=== PATIENT | female | born 1950 | race Caucasian/White ===

== ENCOUNTER 2017-08-01 20:22 | Emergency (ER) | payer OTHER ==
[~2017-08-01] VITALS: Ht 167.6 cm; Wt 92.7 kg
[~2017-08-01 20:22] MED LIST: CAR60 PO; ECO81 PO; LEVOTHYROXINE0.05 M2; LIPI10 PO; PRILOSEC40 MG; TENORMIN25 MG
[2017-08-01 22:30] LABS: BASOPHIL % 0.5 % (0-2); PLATELET COUNT 184 x10^3mcL (130-400); RED CELL DISTRIBUTION WIDTH 14.4 % (11.5-14.5)
[2017-08-01 22:32] LABS: UA SPECIFIC GRAVITY 1.015 (1.005-1.035); microscopic required? YES; urine erythrocyte 3+ (NEGATIVE)
[2017-08-01 22:39] LABS: CALCIUM 9.4 mg/dL (8.5-10.1); CARBON DIOXIDE 30.7 mmol/L (21-32); CHLORIDE SERUM 101 mmol/L (98-107); CREATININE SERUM 0.9 mg/dL (0.6-1.0); GFR1 > 60 mL/min; GLUCOSE SERUM 108 mg/dL (74-106); POTASSIUM SERUM 4.2 mmol/L (3.5-5.1); SODIUM SERUM 140 mmol/L (136-145)
[2017-08-01 22:43] LABS: ALBUMIN 4.2 g/dL (3.4-5.0); ALKALINE PHOSPHATASE 98 U/L (46-116); ALT/SGPT 23 U/L (14-59); AMYLASE 49 U/L (25-115); AST/SGOT 19 U/L (15-37); BILIRUBIN TOTAL 0.27 mg/dL (0.20-1.00); LIPASE 160 IU/L (73-393); TOTAL PROTEIN, SERUM 8.2 g/dL (6.4-8.2)
[2017-08-02 01:00] VITALS: BP 149/83
== END 2017-08-02 01:00 | disposition home or self-care (01) ==
LOC: ED 20:22
PROVIDERS: Specialist
DX: N39.0 Urinary tract infection, site not specified (principal); K21.9 Gastro-esophageal reflux disease without esophagitis; Z88.0 Allergy status to penicillin; Z88.1 Allergy status to other antibiotic agents
CPT/HCPCS: 83880; J1885; J1956; J2405; J3010; J7030

== ENCOUNTER 2017-09-24 19:31 | Emergency (ER) | payer OTHER ==
[~2017-09-24] VITALS: Ht 167.6 cm; Wt 93.5 kg
[2017-09-25 01:05] VITALS: BP 141/77
== END 2017-09-25 01:05 | disposition home or self-care (01) ==
LOC: ED 19:31
DX: R07.89 Other chest pain (principal); F17.200 Nicotine dependence, unspecified, uncomplicated; M54.9 Dorsalgia, unspecified; I10 Essential (primary) hypertension; E07.9 Disorder of thyroid, unspecified; K21.9 Gastro-esophageal reflux disease without esophagitis; Z88.0 Allergy status to penicillin; Z88.1 Allergy status to other antibiotic agents; Z86.79 Personal history of other diseases of the circulatory system

== ENCOUNTER 2018-03-30 18:46 | Inpatient (IN) | payer OTHER ==
[~2018-03-30] VITALS: Ht 167.6 cm; Wt 89.0 kg
[2018-03-30 21:19] LABS: CALCIUM 7.7 mg/dL (8.5-10.1); CARBON DIOXIDE 24.6 mmol/L (21-32); POTASSIUM SERUM 3.6 mmol/L (3.5-5.1)
[2018-03-30 21:31] LABS: BILIRUBIN TOTAL 0.4 mg/dL (0.20-1.00); TOTAL PROTEIN, SERUM 6.2 g/dL (6.4-8.2)
[2018-03-30 21:39] LABS: RED CELL DISTRIBUTION WIDTH 14.2 % (11.5-14.5)
[2018-03-30 21:44] LABS: BASOPHIL % 0 % (0-2)
[2018-03-30 21:45] LABS: PLATELET COUNT 81 x10^3mcL (130-400)
[2018-03-30 22:23] LABS: microscopic required? YES; urine erythrocyte TRACE (NEGATIVE)
[2018-03-31 03:07] VITALS: BP 101/52
[2018-03-31 03:11] LABS: MAGNESIUM 1.8 mg/dL (1.8-2.4); PHOSPHOROUS 2.6 mg/dL (2.5-4.9)
[2018-03-31 03:17] LABS: T3 TOTAL 0.87 ng/mL
[2018-03-31 03:22] LABS: CHOLESTEROL/HDL RATIO 5.4
[2018-03-31 03:23] LABS: FREE T4 1.03 ng/dL (0.76-1.46); FREE THYROXINE INDEX 2.1 ug/dL (1.4-4.5); T4(THYROXINE) 5.8 ug/dL (4.7-13.3)
[2018-03-31 05:47] VITALS: BP 123/51
[2018-03-31 07:55] VITALS: BP 102/57
[2018-03-31 09:54] LABS: RED CELL DISTRIBUTION WIDTH 14.4 % (11.5-14.5)
[2018-03-31 10:05] LABS: BASOPHIL % 0 % (0-2); PLATELET COUNT 73 x10^3mcL (130-400)
[2018-03-31 13:12] VITALS: BP 117/52
[2018-03-31 17:58] VITALS: BP 115/58
[2018-03-31 21:30] VITALS: BP 119/62
[2018-04-01 05:42] VITALS: BP 117/60
[2018-04-01 05:55] LABS: CARBON DIOXIDE 25.3 mmol/L (21-32); MAGNESIUM 1.9 mg/dL (1.8-2.4); PHOSPHOROUS 1.9 mg/dL (2.5-4.9); POTASSIUM SERUM 4.9 mmol/L (3.5-5.1)
[2018-04-01 06:10] LABS: RED CELL DISTRIBUTION WIDTH 14.5 % (11.5-14.5)
[2018-04-01 06:59] LABS: PLATELET COUNT 37 x10^3mcL (130-400)
[2018-04-01 08:36] VITALS: BP 100/47
[2018-04-01 10:39] LABS: BAND NEUTROPHIL 70 % (0-10); BASOPHIL 0 % (0-2); METAMYELOCTE 4 % (0-2); MONOCYTE 2 % (0-7); SEGMENTED NEUTROPHILS 19 % (37-75)
[2018-04-01 10:41] LABS: PLATELET MORPHOLOGY PLATELETS DECREASED
[2018-04-01 13:11] VITALS: BP 92/64
[2018-04-01 17:04] VITALS: BP 97/48
[2018-04-01 21:05] VITALS: BP 95/53
[2018-04-02 04:59] VITALS: BP 133/72
[2018-04-02 06:18] LABS: CALCIUM 8.1 mg/dL (8.5-10.1); CARBON DIOXIDE 25.2 mmol/L (21-32); CREATININE SERUM 1.1 mg/dL (0.6-1.0); MAGNESIUM 2.1 mg/dL (1.8-2.4); PHOSPHOROUS 1.9 mg/dL (2.5-4.9); POTASSIUM SERUM 4.9 mmol/L (3.5-5.1)
[2018-04-02 07:30] LABS: BASOPHIL % 0.1 % (0-2); RED CELL DISTRIBUTION WIDTH 14.5 % (11.5-14.5)
[2018-04-02 08:06] LABS: PLATELET COUNT 42 x10^3mcL (130-400)
[2018-04-02 09:21] VITALS: BP 102/47
[2018-04-02 10:06] VITALS: Ht 167.6 cm; Wt 89.0 kg
[2018-04-02 12:52] VITALS: BP 123/65
[2018-04-02 17:18] VITALS: BP 149/67
[2018-04-02 21:08] VITALS: BP 137/70
[2018-04-03 05:32] VITALS: BP 95/60
[2018-04-03 06:31] LABS: RED CELL DISTRIBUTION WIDTH 14.4 % (11.5-14.5)
[2018-04-03 07:12] LABS: CALCIUM 7.8 mg/dL (8.5-10.1); CARBON DIOXIDE 23.8 mmol/L (21-32); CHLORIDE SERUM 104 mmol/L (98-107); CREATININE SERUM 0.9 mg/dL (0.6-1.0); GFR1 > 60 mL/min; GLUCOSE SERUM 96 mg/dL (74-106); PHOSPHOROUS 2.2 mg/dL (2.5-4.9); POTASSIUM SERUM 4.7 mmol/L (3.5-5.1); SODIUM SERUM 139 mmol/L (136-145)
[2018-04-03 07:14] LABS: PLATELET COUNT 47 x10^3mcL (130-400)
[2018-04-03 08:08] VITALS: BP 105/63
[2018-04-03 09:45] LABS: BAND NEUTROPHIL 59 % (0-10); BASOPHIL 0 % (0-2); METAMYELOCTE 2 % (0-2); MONOCYTE 8 % (0-7); MYELOCYTE 3 % (0-2); SEGMENTED NEUTROPHILS 21 % (37-75)
[2018-04-03 09:48] LABS: PLATELET MORPHOLOGY PLATELETS DECREASED
[2018-04-03 12:51] VITALS: BP 113/69
[2018-04-03 16:56] VITALS: BP 150/75
[2018-04-03 20:37] VITALS: BP 126/67
[2018-04-04 05:41] VITALS: BP 103/53
[2018-04-04 06:26] LABS: CARBON DIOXIDE 28.1 mmol/L (21-32); CHLORIDE SERUM 103 mmol/L (98-107); CREATININE SERUM 0.8 mg/dL (0.6-1.0); GFR1 > 60 mL/min; GLUCOSE SERUM 120 mg/dL (74-106); MAGNESIUM 2.3 mg/dL (1.8-2.4); PHOSPHOROUS 3.5 mg/dL (2.5-4.9); POTASSIUM SERUM 4.9 mmol/L (3.5-5.1); SODIUM SERUM 138 mmol/L (136-145)
[2018-04-04 06:42] LABS: RED CELL DISTRIBUTION WIDTH 14.9 % (11.5-14.5)
[2018-04-04 08:09] LABS: PLATELET COUNT 48 x10^3mcL (130-400)
[2018-04-04 08:20] VITALS: BP 141/69
[2018-04-04 13:47] VITALS: BP 117/70
[2018-04-04 16:19] LABS: SEGMENTED NEUTROPHILS 43 % (37-75)
[2018-04-04 16:20] LABS: BAND NEUTROPHIL 32 % (0-10); METAMYELOCTE 2 % (0-2); MONOCYTE 9 % (0-7); MYELOCYTE 3 % (0-2); rbc morphology (normal/abnorm) NORMAL (NORMAL)
[2018-04-04 16:21] LABS: PLATELET MORPHOLOGY PLATELETS DECREASED
[2018-04-04 17:26] VITALS: BP 134/78
[2018-04-04 21:05] VITALS: BP 111/66
[2018-04-05 06:09] VITALS: BP 110/68
[2018-04-05 06:24] LABS: CALCIUM 8.2 mg/dL (8.5-10.1); CARBON DIOXIDE 30.3 mmol/L (21-32); CHLORIDE SERUM 102 mmol/L (98-107); CREATININE SERUM 0.9 mg/dL (0.6-1.0); GFR1 > 60 mL/min; GLUCOSE SERUM 87 mg/dL (74-106); MAGNESIUM 2.2 mg/dL (1.8-2.4); POTASSIUM SERUM 4.2 mmol/L (3.5-5.1); SODIUM SERUM 139 mmol/L (136-145)
[2018-04-05 06:53] LABS: PLATELET COUNT 46 x10^3mcL (130-400); RED CELL DISTRIBUTION WIDTH 14.8 % (11.5-14.5)
[2018-04-05] MEDS ORDERED: CLA10 PO (09:16)
[2018-04-05] MEDS ORDERED: LAC PO (09:17)
[2018-04-05] MEDS ORDERED: ANUHCC TOP (09:18)
[2018-04-05] MEDS ORDERED: CIPROFLOXACIN250 M2 PO (09:18)
[2018-04-05 10:43] VITALS: BP 117/71
[2018-04-05 11:31] LABS: MONOCYTE 7 % (0-7); SEGMENTED NEUTROPHILS 37 % (37-75)
[2018-04-05 11:32] LABS: BAND NEUTROPHIL 36 % (0-10); BASOPHIL 0 % (0-2); METAMYELOCTE 4 % (0-2); MYELOCYTE 3 % (0-2); PLATELET MORPHOLOGY PLATELETS DECREASED
[2018-04-05] MEDS ORDERED: CIPRO500 MG PO (11:36)
[2018-04-05 12:06] VITALS: BP 117/71
== END 2018-04-05 13:00 | disposition home or self-care (01) | DRG 871 ==
LOC: ED 18:46 → DU 03-31 00:58
PROVIDERS: Emergency Medicine; Family Medicine
DX: A41.9 Sepsis, unspecified organism (principal); N17.0 Acute kidney failure with tubular necrosis; N39.0 Urinary tract infection, site not specified; E87.1 Hypo-osmolality and hyponatremia; E44.0 Moderate protein-calorie malnutrition; E03.9 Hypothyroidism, unspecified; K21.9 Gastro-esophageal reflux disease without esophagitis; I48.91 Unspecified atrial fibrillation; E78.5 Hyperlipidemia, unspecified; D69.6 Thrombocytopenia, unspecified; B27.90 Infectious mononucleosis, unspecified without complication; E83.51 Hypocalcemia; B96.5 Pseudomonas (aeruginosa) (mallei) (pseudomallei) as the cause of diseases classified elsewhere; K76.0 Fatty (change of) liver, not elsewhere classified; E83.39 Other disorders of phosphorus metabolism; E83.41 Hypermagnesemia; Z88.0 Allergy status to penicillin; Z88.8 Allergy status to other drugs, medicaments and biological substances; Z68.30 Body mass index [BMI] 30.0-30.9, adult; Z88.1 Allergy status to other antibiotic agents; Z90.49 Acquired absence of other specified parts of digestive tract; Z90.710 Acquired absence of both cervix and uterus; Z90.89 Acquired absence of other organs; Z90.721 Acquired absence of ovaries, unilateral
CPT/HCPCS: 83880; 84439; 86308; 87046; 87046-59; 87804; J0744; J1580; J1885; J1940; J1956; J2920; J2930; J3370; J7030; J7040; Q0092; Q0163; Q9967

== ENCOUNTER 2019-03-31 18:19 | Emergency (ER) | payer OTHER ==
[~2019-03-31] VITALS: Ht 167.6 cm; Wt 92.5 kg
[~2019-03-31 18:19] MED LIST changes: +ANUHCC TOP; +CIPRO500 MG PO; +CIPROFLOXACIN250 M2 PO; +CLA10 PO; +LAC PO
[2019-03-31 18:24] VITALS: Ht 167.6 cm; Wt 92.5 kg
[2019-03-31 18:42] LABS: BASOPHIL % 0.9 % (0-2); PLATELET COUNT 171 x10^3mcL (130-400); RED CELL DISTRIBUTION WIDTH 13.2 % (11.5-14.5)
[2019-03-31 18:51] LABS: CALCIUM 9.5 mg/dL (8.5-10.1); CARBON DIOXIDE 28.6 mmol/L (21-32); CHLORIDE SERUM 104 mmol/L (98-107); CREATININE SERUM 0.8 mg/dL (0.6-1.0); GFR1 > 60 mL/min; GLUCOSE SERUM 102 mg/dL (74-106); POTASSIUM SERUM 4.4 mmol/L (3.5-5.1); SODIUM SERUM 140 mmol/L (136-145)
[2019-03-31 18:56] LABS: ALBUMIN 4.1 g/dL (3.4-5.0); ALKALINE PHOSPHATASE 105 U/L (46-116); ALT/SGPT 19 U/L (14-59); AST/SGOT 14 U/L (15-37); BILIRUBIN TOTAL 0.36 mg/dL (0.20-1.00); TOTAL PROTEIN, SERUM 7.9 g/dL (6.4-8.2)
[2019-03-31 21:24] VITALS: BP 120/78
== END 2019-03-31 21:24 | disposition home or self-care (01) ==
LOC: ED 18:19
DX: K57.90 Diverticulosis of intestine, part unspecified, without perforation or abscess without bleeding (principal); I10 Essential (primary) hypertension; K21.9 Gastro-esophageal reflux disease without esophagitis; Z88.0 Allergy status to penicillin; Z88.1 Allergy status to other antibiotic agents
CPT/HCPCS: 36415